=== PATIENT | male | born 1975 | race African-American/Black ===

== ENCOUNTER 2020-12-29 08:09 | Inpatient (IN) ==
[2020-12-29 08:22] VITALS: BMI 32.7
[2020-12-29 08:35] LABS: ABG BASE EXCESS 2.3 mmol/L (-2.0-2.0)
[2020-12-29 08:36] LABS: ABG ALLEN TEST POS
[2020-12-29] MEDS ORDERED: SOLU-Medrol 125 MG VIAL IVP ONE (08:37)
[2020-12-29] MEDS ORDERED: PROVENTIL NEB TX 0.083% 2.5MG/ 3ML NEB ONE (08:37)
--- NOTE | 2020-12-29 08:43 | DR.SOBA ---
HPI Time Seen Time Seen by Provider: 12/29/20 08:20 Primary Care Physician Primary Care Physician: Sandi HPI Comment HPI Comment: Patient presents with complaint of worsening sob and left shoulder pain and swelling. Seen here yesterday and dx with PNA. Notes that he has a h/o PE and takes anticoagulants, but had been "off" this med. Per patient was given heparin yesterday. Complaints Chief Complaint:: Pt c/o shortness of breath, pain all over, swelling to hands and lower lip, and difficulty walking. He states the pain is too severe to walk. Pt reports his rapid breathing is due to anxiety. COVID-19 Coronavirus risk:travel/contact w/high risk person: No Has patient experienced Coronavirus symptoms: No Source History Provided: Patient Mode of Arrival Mode of Arrival: Wheelchair Timing Onset of Chief Complaint: 12/29/20 PMH PMH Past Medical History: Yes Past Medical History: GERD and Sleep Apnea Past Medical History Comment: PE Past Surgical History: Yes Family History History of Family Medical Conditions: Yes Family Medical History: Diabetes Mellitus Social History Does patient currently use any type of tobacco product: Yes Type of Tobacco Use: Cigarettes Does any household member use tobacco: Yes Alcohol Use: None Do you use any recreational Drugs:: Yes (marijuana) Lives With: Family Lives Where: Home Travel Risk Coronavirus risk:travel/contact w/high risk person: No Has patient experienced Coronavirus symptoms: No Infectious screening In the last 2 months have you had wt loss of >10#?: NO Have you had fever, night sweats or hemotysis?: No Have you traveled outside the country in the last 6 months?: No Isolation: Standard ROS Review of Systems Constitutional: See HPI, Weakness and Fatigue Respiratoy: Short of Breath Cardiovascular: Palpitations Musculoskeletal: Joint Pain, Joint Swelling, Left and Shoulder Integumentary: Other (lip swelling) Hematologic/Lymphatic: Blood Clots All Other Systems: Reviewed and Negative PE Vital Signs Vitals: Temperature 98.3 F Pulse Rate [Left Radial] 99 Pulse Rate 96 Respiratory Rate 20 Blood Pressure [Left Arm] 134/80 Blood Pressure 134/80 O2 Sat by Pulse Oximetry 100 General Limitations: No Limitations General Appearance: Alert, Anxious and In Distress Head Head Exam: Normal Inspection ENT ENT Exam: Other (bottom lip edema) Chest Chest Inspection: Normal Inspection and Symmetric Chest Wall Rise Respiratory Respiratory Exam: Bilateral: Wheezing and Bilateral: Rhonchi Cardiovascular Cardiovascular Exam: Normal Rhythm and Tachycardia Abdominal Exam Abdominal Exam: Normal Inspection, Normal Bowel Sounds and Soft COURSE Reevaluation 1st: Unchanged Consultation Called: 10:23 Consultation Comments: Spoke with Dr. Junior who accepts patient for admission. Education/Counseling Education/Counseling: Patient Educated On: Diagnosis ROR Labs Reviewed Laboratory Results Reviewed?: Yes Result Diagrams: 12/29/20 08:31 12/29/20 08:31 Laboratory: WBC 17.3 X10^3/uL (3.6-10.0) H 12/29/20 08:31 RBC 5.41 X10^6/uL (4.7-6.0) 12/29/20 08:31 Hgb 14.5 g/dL (13.5-18.0) 12/29/20 08:31 Hct 44.1 % (42.0-54.0) 12/29/20 08:31 MCV 81.4 fL (80.0-100.0) 12/29/20 08:31 MCH 26.8 pg (27.0-34.0) L 12/29/20 08:31 MCHC 33.0 g/dL (33.0-35.0) 12/29/20 08:31 RDW 18.0 % (11.6-16.5) H 12/29/20 08:31 Plt Count 401 X10^3/uL (150.0-450.0) 12/29/20 08:31 MPV 7.7 fL (7.4-11.0) 12/29/20 08:31 Neut % (Auto) 67.4 % (42.0-75.0) 12/29/20 08:31 Lymph % (Auto) 8.4 % (21.0-51.0) L 12/29/20 08:31 [place] % (Auto) 4.2 % (0.0-13.0) 12/29/20 08:31 Eos % (Auto) 19.8 % (0.9-2.9) H 12/29/20 08:31 Baso % (Auto) 0.2 % (0.2-1.0) 12/29/20 08:31 Neut # (Auto) 11.7 x10^3/uL (2.2-4.8) H 12/29/20 08:31 Lymph # (Auto) 1.5 X10^3/uL (1.3-2.9) 12/29/20 08:31 [place] # (Auto) 0.7 x10^3/uL (0.3-0.8) 12/29/20 08:31 Eos # (Auto) 3.4 x10^3/uL (0.0-0.2) H 12/29/20 08:31 Baso # (Auto) 0.0 X10^3/uL (0.0-0.1) 12/29/20 08:31 Absolute Nucleated RBC 0.1 /100WBC 12/29/20 08:31 D-Dimer 3.79 ug/ml (0.0-0.57) H* 12/29/20 08:31 Sample Site Rr 12/29/20 08:30 ABG pH 7.500 (7.35-7.45) H 12/29/20 08:30 ABG pCO2 32.0 mmHg (35.0-45.0) L 12/29/20 08:30 ABG pO2 72.0 mmHg (80.0-100.0) L 12/29/20 08:30 ABG HCO3 25.0 mmol/L (22-26) 12/29/20 08:30 ABG O2 Saturation 96.0 % (90-100) 12/29/20 08:30 ABG Base Excess 2.3 mmol/L (-2.0-2.0) H 12/29/20 08:30 Bryan Test Pos 12/29/20 08:30 A-a Gradient 88.0 mmHg 12/29/20 08:30 FiO2 28.0 12/29/20 08:30 Blood Gas Comments Pt bella well cdn 12/29/20 08:30 Sodium 137 mmol/L (136-145) 12/29/20 08:31 Corrected Sodium 137 mmol/L (136-145) 12/29/20 08:31 Potassium 3.5 mmol/L (3.5-5.1) 12/29/20 08:31 Chloride 100 mmol/L (98-107) 12/29/20 08:31 Carbon Dioxide 25.7 mmol/L (21-32) 12/29/20 08:31 BUN 8 mg/dL (7-18) 12/29/20 08:31 Creatinine 1.38 mg/dL (0.70-1.30) H 12/29/20 08:31 Est GFR (MDRD) Af Amer > 60 (>60) 12/29/20 08:31 Est GFR (MDRD) Non-Af 59 (>60) 12/29/20 08:31 Glucose 113 mg/dL (65-99) H 12/29/20 08:31 Calcium 8.9 mg/dL (8.5-10.1) 12/29/20 08:31 Corrected Calcium 9.5 mg/dL (8.5-10.1) 12/29/20 08:31 Magnesium 2.0 mg/dL (1.7-2.9) 12/29/20 08:31 Total Bilirubin 0.70 mg/dL (0.2-1.0) 12/29/20 08:31 AST 21 Units/L (15-37) 12/29/20 08:31 ALT 19 Units/L (12-78) 12/29/20 08:31 Alkaline Phosphatase 127 Units/L (46-116) H 12/29/20 08:31 Creatine Kinase 579 Units/L (39-308) H 12/29/20 08:31 CK-MB (CK-2) 4.7 ng/mL (0-4.0) H* 12/29/20 08:31 CK/CKMB % Calc 0.8 % (<4) 12/29/20 08:31 Troponin I < 0.02 ng/mL (0-1.5) 12/29/20 08:31 Total Protein 8.2 g/dL (6.4-8.2) 12/29/20 08:31 Albumin 3.3 g/dL (3.4-5.0) L 12/29/20 08:31 Globulin 4.9 g/dL (2.5-4.5) H 12/29/20 08:31 Albumin/Globulin Ratio 0.7 Ratio (1.1-2.1) L 12/29/20 08:31 XRAY X-ray Results: HISTORY SOB, PAIN, PT UNABLE TO HOLD LEFT ARM UP FOR LATERAL DUE TO SHOULDER PAIN STUDY CHEST, PA/LAT ADULT COMPARISON 12/28/2020 FINDINGS The cardiomediastinal silhouette is stable. Hypoventilatory exam with worsening perihilar and bibasilar airspace opacities. The bony thorax appears intact. IMPRESSION Worsening bilateral airspace opacities. Recommend follow-up to resolution. Electronically signed by: ERIBERTO MIR (December 29, 2020 09:18:20) Opioid Opioid Risk Tool Age (Damon box if 16-45): Yes History of Preadolescent Sexual Abuse: No Total: 1 Total Score Risk Category: Low Risk Copyright: Jeremiah KOCH predicting aberrant behaviors Diagnosis Discharge Problem: CAP (community acquired pneumonia) Qualifiers: Laterality: unspecified laterality Qualified Code(s): J18.9 - Pneumonia, unspecified organism
[2020-12-29] MEDS ORDERED: SOLU-Medrol 125 MG VIAL ONE (08:46)
[2020-12-29 08:47] LABS: BASOPHILS % (AUTO) 0.2 % (0.2-1.0); EOSINOPHILS # (AUTO) 3.4 x10^3/uL (0.0-0.2); EOSINOPHILS % (AUTO) 19.8 % (0.9-2.9); HEMATOCRIT 44.1 % (42.0-54.0); HEMOGLOBIN 14.5 g/dL (13.5-18.0); LYMPHOCYTES # (AUTO) 1.5 X10^3/uL (1.3-2.9); LYMPHOCYTES % (AUTO) 8.4 % (21.0-51.0); MEAN CORPUSCULAR HEMOGLOBIN 26.8 pg (27.0-34.0); MEAN CORPUSCULAR VOLUME 81.4 fL (80.0-100.0); MEAN PLATELET VOLUME 7.7 fL (7.4-11.0); MONOCYTES # (AUTO) 0.7 x10^3/uL (0.3-0.8); MONOCYTES % (AUTO) 4.2 % (0.0-13.0); NEUTROPHILS # (AUTO) 11.7 x10^3/uL (2.2-4.8); NEUTROPHILS % (AUTO) 67.4 % (42.0-75.0); PLATELET COUNT 401 X10^3/uL (150.0-450.0); RED BLOOD COUNT 5.41 X10^6/uL (4.7-6.0); WHITE BLOOD COUNT 17.3 X10^3/uL (3.6-10.0)
[2020-12-29] MEDS ORDERED: PROVENTIL NEB TX 0.083% 2.5MG/ 3ML ONE (08:59)
[2020-12-29 09:00] LABS: BLOOD UREA NITROGEN 8 mg/dL (7-18); CALCIUM 8.9 mg/dL (8.5-10.1); CARBON DIOXIDE 25.7 mmol/L (21-32); CHLORIDE 100 mmol/L (98-107); COR NA(FOR HYPERGLY) 137 mmol/L (136-145); CREATININE 1.38 mg/dL (0.70-1.30); SODIUM 137 mmol/L (136-145); TROPONIN I < 0.02 ng/mL (0-1.5); eGFR NON BLACK RACES 59 (>60)
[2020-12-29] MEDS ORDERED: DUONEB 0.5 MG/3 MG (3 mL) NEB ONE ×2 (09:03→09:35)
--- NOTE | 2020-12-29 09:20 | RAD ---
HISTORYSOB, PAIN, PT UNABLE TO HOLD LEFT ARM UP FOR LATERAL DUE TO SHOULDER PAINSTUDYCHTEDDY, PA/LAT [id number]/13/2021FINDINGSThe cardiomediastinal silhouette is stable. Hypoventilatory exam with worsening perihilar and bibasilar airspace opacities. The bony thorax appears intact.IMPRESSIONWorsening bilateral airspace opacities. Recommend follow-up to resolution.Electronically signed by: ERIBERTO MIR (December 29, 2020 09:18:20)
[2020-12-29 09:24] LABS: ALANINE AMINOTRANSFERASE 19 Units/L (12-78); ALBUMIN 3.3 g/dL (3.4-5.0); ALKALINE PHOSPHATASE 127 Units/L (46-116); ASPARTATE AMINO TRANSFERASE 21 Units/L (15-37); CKMB % 0.8 % (<4); COR CA(FOR HYPOALB) 9.5 mg/dL (8.5-10.1); CREATINE KINASE 579 Units/L (39-308); TOTAL PROTEIN 8.2 g/dL (6.4-8.2)
[2020-12-29 09:27] LABS: CREATINE KINASE MB 4.7 ng/mL (0-4.0)
[2020-12-29] MEDS ORDERED: ZOSYN VIAL 3.375 GRAMS 3.375 G in NS 100 ML IV + SPIKE MINIBAG* 100 ML IV ONE (09:27)
[2020-12-29] MEDS ORDERED: MORPHINE SULFATE INJ 2 MG INJ IVP ONE (09:28)
[2020-12-29] MEDS ORDERED: VANCOMYCIN IV *PREMIX 1 G/200 ML BAG 1 G/200 ML PIGGYBACK IV ONE ×2 (09:28→10:54)
[2020-12-29] MEDS ORDERED: MORPHINE SULFATE INJ 2 MG INJ ONE (09:30)
[2020-12-29] MEDS ORDERED: ZOSYN VIAL 3.375 GRAMS IV ONE (09:30)
[2020-12-29] MEDS ORDERED: NS 100 ML IV + SPIKE MINIBAG* 100 ML IV ONE (09:31)
[2020-12-29] MEDS ORDERED: ELIQUIS ONE (09:40)
[2020-12-29] MEDS ORDERED: NS 1000 ML 0 ML ONE (10:54)
[2020-12-29] MEDS ORDERED: NS 1/2 1000 ML IV 1,000 ML IV ONE (10:56)
[2020-12-29] MEDS: NS 1/2 1000 ML IV 1,000 ML IV SCH (11:02)
[2020-12-29] MEDS ORDERED: XOPENEX 1.25 MG/3 ML NEBULE NEB ONE ×2 (12:30→16:12)
[2020-12-29] MEDS: XOPENEX 1.25 MG/3 ML NEBULE NEB SCH ×3 (12:45→18:05)
[2020-12-29] MEDS: ROBITUSSIN DM PO SCH ×4 (14:20→21:31)
[2020-12-29] MEDS: LEVAQUIN PREMIX IV 750 MG 750 MG/150 ML BAG IV SCH (14:56)
[2020-12-29] MEDS: ZOSYN VIAL 4.5 GRAMS 4.5 G in NS 100 ML IV + SPIKE MINIBAG* 100 ML IV SCH ×2 (14:57→21:31)
[2020-12-29] MEDS: TORADOL 30 MG VIAL IVP PRN ×2 (16:04→21:31)
[2020-12-29] MEDS: PROTONIX TAB 40 MG PO SCH (17:41)
[2020-12-29] MEDS ORDERED: ELIQUIS PO SCH (21:00)
[2020-12-29] MEDS: PULMICORT NEB TX 0.5 MG NEB SCH (21:29)
[2020-12-29] MEDS: TUSSIONEX PENNKINETIC SUSP PO PRN (21:49)
[2020-12-30] MEDS: XOPENEX 1.25 MG/3 ML NEBULE NEB SCH ×4 (00:27→17:52)
[2020-12-30] MEDS: NS 1/2 1000 ML IV 1,000 ML IV SCH ×3 (05:05→18:15)
[2020-12-30] MEDS: TORADOL 30 MG VIAL IVP PRN ×2 (05:12→20:44)
[2020-12-30] MEDS: ZOSYN VIAL 4.5 GRAMS 4.5 G in NS 100 ML IV + SPIKE MINIBAG* 100 ML IV SCH ×3 (05:14→21:27)
--- NOTE | 2020-12-30 06:25 | RAD ---
HISTORYPneumoniaSTUDYChest PA and lateral [id number]/14/2021FINDINGSHeart size normal. There is interval improvement in pulmonary aeration with slight decrease in bilateral airspace disease. Infiltrates remain, however. No new areas of involvement identified. There is no evidence for pneumothorax or large pleural effusion.IMPRESSIONSlight interval improvement in appearance of the chest.Electronically signed by: SVETLANA DUARTE (December 30, 2020 06:23:33)
[2020-12-30 06:44] LABS: BASOPHILS % (AUTO) 0.1 % (0.2-1.0); EOSINOPHILS # (AUTO) 0.1 x10^3/uL (0.0-0.2); EOSINOPHILS % (AUTO) 0.6 % (0.9-2.9); HEMATOCRIT 36.7 % (42.0-54.0); HEMOGLOBIN 12.2 g/dL (13.5-18.0); LYMPHOCYTES # (AUTO) 1.6 X10^3/uL (1.3-2.9); LYMPHOCYTES % (AUTO) 8.8 % (21.0-51.0); MEAN CORPUSCULAR HEMOGLOBIN 26.9 pg (27.0-34.0); MEAN CORPUSCULAR HGB CONC 33.1 g/dL (33.0-35.0); MEAN CORPUSCULAR VOLUME 81.2 fL (80.0-100.0); MEAN PLATELET VOLUME 8.2 fL (7.4-11.0); MONOCYTES # (AUTO) 0.9 x10^3/uL (0.3-0.8); MONOCYTES % (AUTO) 5.1 % (0.0-13.0); NEUTROPHILS # (AUTO) 15.2 x10^3/uL (2.2-4.8); NEUTROPHILS % (AUTO) 85.4 % (42.0-75.0); PLATELET COUNT 364 X10^3/uL (150.0-450.0); RED BLOOD COUNT 4.52 X10^6/uL (4.7-6.0); RED CELL DISTRIBUTION WIDTH 17.8 % (11.6-16.5); WHITE BLOOD COUNT 17.8 X10^3/uL (3.6-10.0)
[2020-12-30 06:52] LABS: ALANINE AMINOTRANSFERASE 18 Units/L (12-78); ALBUMIN 2.7 g/dL (3.4-5.0); ALKALINE PHOSPHATASE 107 Units/L (46-116); ASPARTATE AMINO TRANSFERASE 16 Units/L (15-37); BLOOD UREA NITROGEN 16 mg/dL (7-18); CALCIUM 8.5 mg/dL (8.5-10.1); CARBON DIOXIDE 26.9 mmol/L (21-32); CHLORIDE 103 mmol/L (98-107); COR CA(FOR HYPOALB) 9.5 mg/dL (8.5-10.1); COR NA(FOR HYPERGLY) 140 mmol/L (136-145); CREATININE 1.28 mg/dL (0.70-1.30); SODIUM 139 mmol/L (136-145); TOTAL PROTEIN 7.5 g/dL (6.4-8.2); eGFR NON BLACK RACES > 60 (>60)
[2020-12-30] MEDS ORDERED: POTASSIUM CHL 60 MEQ/NS 0.45% 500 ML IV PRN (08:23)
[2020-12-30] MEDS ORDERED: K-RIDER 10 MEQ/NS 100 ML 10 MEQ/100 ML BAG IV PRN (08:23)
[2020-12-30] MEDS ORDERED: POTASSIUM CHLORIDE LIQ 20 MEQ UDC PO PRN (08:23)
[2020-12-30] MEDS ORDERED: KLOR-CON PO PRN (08:23)
[2020-12-30] MEDS ORDERED: POTASSIUM CHL 40 MEQ/NS 0.45% 500 ML IV PRN (08:23)
[2020-12-30] MEDS ORDERED: MICRO K EXTEN CAP 10 MEQ PO PRN (08:23)
[2020-12-30] MEDS ORDERED: XARELTO PO SCH (09:00)
[2020-12-30] MEDS: PULMICORT NEB TX 0.5 MG NEB SCH ×2 (09:15→20:10)
[2020-12-30] MEDS: LEVAQUIN PREMIX IV 750 MG 750 MG/150 ML BAG IV SCH (09:16)
[2020-12-30] MEDS: ROBITUSSIN DM PO SCH ×4 (09:16→20:44)
[2020-12-30] MEDS: PROTONIX TAB 40 MG PO SCH (09:16)
[2020-12-30] MEDS: K-DUR TAB 20 MEQ PO PRN (14:08)
[2020-12-30] MEDS: TUSSIONEX PENNKINETIC SUSP PO PRN (17:34)
[2020-12-30] MEDS ORDERED: NS 1/2 1000 ML IV 1,000 ML IV ONE (18:11)
[2020-12-30] MEDS ORDERED: LEXAPRO ONE (19:10)
[2020-12-30] MEDS: LEXAPRO PO SCH (20:43)
[2020-12-30] MEDS ORDERED: XARELTO PO NR (21:00)
[2020-12-31] MEDS: XOPENEX 1.25 MG/3 ML NEBULE NEB SCH ×4 (00:13→18:18)
[2020-12-31] MEDS: TORADOL 30 MG VIAL IVP PRN ×2 (01:49→20:28)
[2020-12-31] MEDS: ZOSYN VIAL 4.5 GRAMS 4.5 G in NS 100 ML IV + SPIKE MINIBAG* 100 ML IV SCH ×3 (05:10→21:00)
[2020-12-31] MEDS: TUSSIONEX PENNKINETIC SUSP PO PRN ×2 (05:10→20:28)
[2020-12-31] MEDS: NS 1/2 1000 ML IV 1,000 ML IV SCH ×2 (05:47→20:27)
[2020-12-31 06:48] LABS: BASOPHILS % (AUTO) 0.2 % (0.2-1.0); EOSINOPHILS # (AUTO) 3.7 x10^3/uL (0.0-0.2); EOSINOPHILS % (AUTO) 28.4 % (0.9-2.9); HEMATOCRIT 37.1 % (42.0-54.0); LYMPHOCYTES # (AUTO) 2.3 X10^3/uL (1.3-2.9); MEAN CORPUSCULAR HEMOGLOBIN 26.6 pg (27.0-34.0); MEAN CORPUSCULAR HGB CONC 32.5 g/dL (33.0-35.0); MEAN PLATELET VOLUME 8.1 fL (7.4-11.0); MONOCYTES # (AUTO) 0.5 x10^3/uL (0.3-0.8); MONOCYTES % (AUTO) 3.5 % (0.0-13.0); NEUTROPHILS # (AUTO) 6.5 x10^3/uL (2.2-4.8); NEUTROPHILS % (AUTO) 49.9 % (42.0-75.0); PLATELET COUNT 361 X10^3/uL (150.0-450.0); RED BLOOD COUNT 4.52 X10^6/uL (4.7-6.0); RED CELL DISTRIBUTION WIDTH 17.6 % (11.6-16.5)
[2020-12-31 06:49] LABS: ALANINE AMINOTRANSFERASE 20 Units/L (12-78); ALBUMIN 2.5 g/dL (3.4-5.0); ALKALINE PHOSPHATASE 92 Units/L (46-116); ASPARTATE AMINO TRANSFERASE 19 Units/L (15-37); BLOOD UREA NITROGEN 13 mg/dL (7-18); CALCIUM 8.4 mg/dL (8.5-10.1); CARBON DIOXIDE 28.1 mmol/L (21-32); CHLORIDE 100 mmol/L (98-107); COR CA(FOR HYPOALB) 9.6 mg/dL (8.5-10.1); COR NA(FOR HYPERGLY) 136 mmol/L (136-145); CREATININE 1.12 mg/dL (0.70-1.30); SODIUM 136 mmol/L (136-145); TOTAL PROTEIN 6.9 g/dL (6.4-8.2); eGFR NON BLACK RACES > 60 (>60)
[2020-12-31 07:07] LABS: ANISOCYTOSIS SLIGHT; HYPOCHROMASIA SLIGHT; PLATELET MORPHOLOGY COMMENT NORMAL (NORMAL)
[2020-12-31] MEDS ORDERED: LEXAPRO ONE (07:32)
[2020-12-31] MEDS: PULMICORT NEB TX 0.5 MG NEB SCH ×2 (08:37→20:23)
[2020-12-31] MEDS: ROBITUSSIN DM PO SCH ×4 (08:58→20:28)
[2020-12-31] MEDS: PROTONIX TAB 40 MG PO SCH (08:59)
[2020-12-31] MEDS: LEXAPRO PO SCH (08:59)
[2020-12-31] MEDS: LEVAQUIN PREMIX IV 750 MG 750 MG/150 ML BAG IV SCH (09:00)
[2020-12-31] MEDS: XARELTO PO SCH (10:00)
--- NOTE | 2020-12-31 12:33 | VAS ---
HISTORYRT LOWER ARM PAINSTUDYUPPER EXT VENOUS, UNILATERALCOMPARISONAvailableTECHNIQUEMultiple guzmán scale and color flow Doppler images of the deep v enous system were obtained of the right upper extremity.FINDINGSThe deep venous system of the right u pper extremity was evaluated from the level of the right jugular through forearm vein. Normal color f low and augmentation can be observed. In addition, normal compression is seen throughout the deep ve nous system.IMPRESSIONNegative for DVT in the right upper extremity.Electronically signed by: Rene Amanda (December 31, 2020 12:30:09)
[2020-12-31] MEDS: K-DUR TAB 20 MEQ PO PRN (17:38)
[2020-12-31] MEDS ORDERED: NS 1/2 1000 ML IV 1,000 ML IV ONE (19:15)
[2021-01-01] MEDS: XOPENEX 1.25 MG/3 ML NEBULE NEB SCH ×4 (00:39→17:30)
[2021-01-01] MEDS: ZOSYN VIAL 4.5 GRAMS 4.5 G in NS 100 ML IV + SPIKE MINIBAG* 100 ML IV SCH ×3 (05:09→22:00)
[2021-01-01] MEDS: TORADOL 30 MG VIAL IVP PRN (05:10)
[2021-01-01 06:09] LABS: BASOPHILS % (AUTO) 0.2 % (0.2-1.0); EOSINOPHILS # (AUTO) 4.9 x10^3/uL (0.0-0.2); HEMATOCRIT 35.5 % (42.0-54.0); HEMOGLOBIN 11.5 g/dL (13.5-18.0); LYMPHOCYTES # (AUTO) 2.2 X10^3/uL (1.3-2.9); LYMPHOCYTES % (AUTO) 17.8 % (21.0-51.0); MEAN CORPUSCULAR HEMOGLOBIN 26.6 pg (27.0-34.0); MEAN CORPUSCULAR HGB CONC 32.4 g/dL (33.0-35.0); MEAN CORPUSCULAR VOLUME 81.9 fL (80.0-100.0); MONOCYTES # (AUTO) 0.4 x10^3/uL (0.3-0.8); MONOCYTES % (AUTO) 3.3 % (0.0-13.0); NEUTROPHILS % (AUTO) 39.7 % (42.0-75.0); PLATELET COUNT 364 X10^3/uL (150.0-450.0); RED BLOOD COUNT 4.33 X10^6/uL (4.7-6.0); RED CELL DISTRIBUTION WIDTH 17.3 % (11.6-16.5); WHITE BLOOD COUNT 12.6 X10^3/uL (3.6-10.0)
[2021-01-01 06:22] LABS: ALANINE AMINOTRANSFERASE 39 Units/L (12-78); ALBUMIN 2.2 g/dL (3.4-5.0); ALKALINE PHOSPHATASE 111 Units/L (46-116); ASPARTATE AMINO TRANSFERASE 39 Units/L (15-37); BLOOD UREA NITROGEN 14 mg/dL (7-18); CALCIUM 8.4 mg/dL (8.5-10.1); CARBON DIOXIDE 30.3 mmol/L (21-32); CHLORIDE 105 mmol/L (98-107); COR CA(FOR HYPOALB) 9.8 mg/dL (8.5-10.1); COR NA(FOR HYPERGLY) 141 mmol/L (136-145); CREATININE 1.23 mg/dL (0.70-1.30); SODIUM 141 mmol/L (136-145); TOTAL PROTEIN 6.6 g/dL (6.4-8.2); eGFR NON BLACK RACES > 60 (>60)
[2021-01-01 06:41] LABS: BAND NEUTROPHILS % 1 % (0-10); PLATELET MORPHOLOGY COMMENT NORMAL (NORMAL)
[2021-01-01 06:42] LABS: ANISOCYTOSIS SLIGHT; HYPOCHROMASIA SLIGHT
[2021-01-01] MEDS ORDERED: LEXAPRO ONE (09:30)
[2021-01-01] MEDS: K-DUR TAB 20 MEQ PO PRN (09:48)
[2021-01-01] MEDS: ROBITUSSIN DM PO SCH ×5 (09:48→21:46)
[2021-01-01] MEDS: SOLU-Medrol 125 MG VIAL IVP SCH ×2 (09:48→15:00)
[2021-01-01] MEDS: XARELTO PO SCH (09:49)
[2021-01-01] MEDS: PROTONIX TAB 40 MG PO SCH (09:50)
[2021-01-01] MEDS: LEVAQUIN PREMIX IV 750 MG 750 MG/150 ML BAG IV SCH (09:51)
[2021-01-01] MEDS: LEXAPRO PO SCH (10:00)
--- NOTE | 2021-01-01 10:42 | RAD ---
HISTORYSOB, PNEUMONIASTUDYCHEST, PA/LAT ADULTCOMPARISONTwo-view chest December 30, 2020.FINDINGSThe trachea is midline. The cardiac silhouette is unremarkable . The bilateral pulmonary infiltrates remain with mild worsening on bilaterally. No effusions are present. The bony thorax is unremarkable.IMPRESSIONWorsening infiltrates left midlung field and right lower lung field when compared to the last film December 30, 2020.Electronically signed by: MISTY WEI (January 01, 2021 10:39:55)
[2021-01-01] MEDS: PULMICORT NEB TX 0.5 MG NEB SCH ×3 (12:05→21:12)
[2021-01-01] MEDS: NS 1/2 1000 ML IV 1,000 ML IV SCH (15:29)
[2021-01-01] MEDS ORDERED: NS 1/2 1000 ML IV 1,000 ML IV ONE (18:22)
[2021-01-01] MEDS: SOLU-Medrol 40 MG VIAL IVP SCH (21:47)
[2021-01-02] MEDS: XOPENEX 1.25 MG/3 ML NEBULE NEB SCH ×4 (00:30→16:44)
[2021-01-02] MEDS: SOLU-Medrol 40 MG VIAL IVP SCH ×3 (05:42→22:07)
[2021-01-02] MEDS: ZOSYN VIAL 4.5 GRAMS 4.5 G in NS 100 ML IV + SPIKE MINIBAG* 100 ML IV SCH ×3 (05:42→22:06)
[2021-01-02 05:56] LABS: BASOPHILS % (AUTO) 0.1 % (0.2-1.0); EOSINOPHILS # (AUTO) 0.2 x10^3/uL (0.0-0.2); EOSINOPHILS % (AUTO) 1.5 % (0.9-2.9); HEMATOCRIT 33.1 % (42.0-54.0); HEMOGLOBIN 10.7 g/dL (13.5-18.0); LYMPHOCYTES % (AUTO) 14.4 % (21.0-51.0); MEAN CORPUSCULAR HEMOGLOBIN 26.6 pg (27.0-34.0); MEAN CORPUSCULAR HGB CONC 32.4 g/dL (33.0-35.0); MEAN PLATELET VOLUME 7.6 fL (7.4-11.0); MONOCYTES # (AUTO) 0.6 x10^3/uL (0.3-0.8); MONOCYTES % (AUTO) 4.2 % (0.0-13.0); NEUTROPHILS # (AUTO) 11.1 x10^3/uL (2.2-4.8); NEUTROPHILS % (AUTO) 79.8 % (42.0-75.0); PLATELET COUNT 369 X10^3/uL (150.0-450.0); RED BLOOD COUNT 4.04 X10^6/uL (4.7-6.0); RED CELL DISTRIBUTION WIDTH 17.7 % (11.6-16.5); WHITE BLOOD COUNT 13.9 X10^3/uL (3.6-10.0)
[2021-01-02 06:21] LABS: ALANINE AMINOTRANSFERASE 58 Units/L (12-78); ALBUMIN 2.4 g/dL (3.4-5.0); ALKALINE PHOSPHATASE 121 Units/L (46-116); ASPARTATE AMINO TRANSFERASE 33 Units/L (15-37); BLOOD UREA NITROGEN 9 mg/dL (7-18); CALCIUM 8.9 mg/dL (8.5-10.1); CHLORIDE 104 mmol/L (98-107); COR CA(FOR HYPOALB) 10.2 mg/dL (8.5-10.1); COR NA(FOR HYPERGLY) 142 mmol/L (136-145); CREATININE 1.08 mg/dL (0.70-1.30); SODIUM 140 mmol/L (136-145); TOTAL PROTEIN 7.3 g/dL (6.4-8.2); eGFR NON BLACK RACES > 60 (>60)
[2021-01-02] MEDS: NS 1/2 1000 ML IV 1,000 ML IV SCH ×4 (06:25→23:15)
[2021-01-02] MEDS ORDERED: NS 1/2 1000 ML IV 1,000 ML IV ONE ×2 (06:26→22:15)
[2021-01-02 06:32] LABS: BAND NEUTROPHILS % 1 % (0-10); PLATELET MORPHOLOGY COMMENT NORMAL (NORMAL)
[2021-01-02 06:33] LABS: ANISOCYTOSIS SLIGHT; HYPOCHROMASIA SLIGHT
[2021-01-02] MEDS: PULMICORT NEB TX 0.5 MG NEB SCH ×2 (08:05→21:53)
[2021-01-02] MEDS ORDERED: LEXAPRO ONE (08:50)
[2021-01-02] MEDS ORDERED: BETADINE SOLN ONE (08:54)
[2021-01-02] MEDS ORDERED: XYLOCAINE 1 % (PLAIN) ONE (08:54)
[2021-01-02] MEDS: LEXAPRO PO SCH (10:00)
[2021-01-02] MEDS: LEVAQUIN PREMIX IV 750 MG 750 MG/150 ML BAG IV SCH (10:00)
[2021-01-02] MEDS: PROTONIX TAB 40 MG PO SCH (10:13)
[2021-01-02] MEDS: XARELTO PO SCH (10:13)
[2021-01-02] MEDS: ROBITUSSIN DM PO SCH ×4 (10:14→21:06)
[2021-01-02] MEDS ORDERED: TOPROL XL PO ONE ×2 (16:12→17:16)
[2021-01-03] MEDS: XOPENEX 1.25 MG/3 ML NEBULE NEB SCH ×5 (00:19→16:51)
[2021-01-03 05:14] LABS: BASOPHILS # (AUTO) 0.1 X10^3/uL (0.0-0.1); BASOPHILS % (AUTO) 0.3 % (0.2-1.0); EOSINOPHILS # (AUTO) 0.1 x10^3/uL (0.0-0.2); EOSINOPHILS % (AUTO) 0.3 % (0.9-2.9); HEMATOCRIT 32.2 % (42.0-54.0); HEMOGLOBIN 10.7 g/dL (13.5-18.0); LYMPHOCYTES # (AUTO) 2.6 X10^3/uL (1.3-2.9); LYMPHOCYTES % (AUTO) 12.7 % (21.0-51.0); MEAN CORPUSCULAR HEMOGLOBIN 26.9 pg (27.0-34.0); MEAN CORPUSCULAR HGB CONC 33.2 g/dL (33.0-35.0); MEAN CORPUSCULAR VOLUME 81.1 fL (80.0-100.0); MEAN PLATELET VOLUME 7.8 fL (7.4-11.0); MONOCYTES # (AUTO) 1.2 x10^3/uL (0.3-0.8); MONOCYTES % (AUTO) 5.7 % (0.0-13.0); NEUTROPHILS # (AUTO) 16.6 x10^3/uL (2.2-4.8); PLATELET COUNT 420 X10^3/uL (150.0-450.0); RED BLOOD COUNT 3.97 X10^6/uL (4.7-6.0); RED CELL DISTRIBUTION WIDTH 17.7 % (11.6-16.5); WHITE BLOOD COUNT 20.5 X10^3/uL (3.6-10.0)
[2021-01-03 05:26] LABS: ALANINE AMINOTRANSFERASE 80 Units/L (12-78); ALBUMIN 2.5 g/dL (3.4-5.0); ALKALINE PHOSPHATASE 124 Units/L (46-116); ASPARTATE AMINO TRANSFERASE 48 Units/L (15-37); BLOOD UREA NITROGEN 16 mg/dL (7-18); CALCIUM 8.5 mg/dL (8.5-10.1); CARBON DIOXIDE 30.8 mmol/L (21-32); CHLORIDE 104 mmol/L (98-107); COR CA(FOR HYPOALB) 9.7 mg/dL (8.5-10.1); COR NA(FOR HYPERGLY) 145 mmol/L (136-145); CREATININE 1.08 mg/dL (0.70-1.30); SODIUM 144 mmol/L (136-145); TOTAL PROTEIN 7.2 g/dL (6.4-8.2); eGFR NON BLACK RACES > 60 (>60)
[2021-01-03 05:43] LABS: METAMYELOCYTES % 6; PLATELET MORPHOLOGY COMMENT NORMAL (NORMAL)
[2021-01-03] MEDS: ZOSYN VIAL 4.5 GRAMS 4.5 G in NS 100 ML IV + SPIKE MINIBAG* 100 ML IV SCH ×3 (05:44→21:49)
[2021-01-03] MEDS: SOLU-Medrol 40 MG VIAL IVP SCH ×4 (05:44→22:24)
[2021-01-03] MEDS: NS 1/2 1000 ML IV 1,000 ML IV SCH ×2 (05:45→16:55)
[2021-01-03] MEDS ORDERED: LEXAPRO ONE (07:48)
[2021-01-03] MEDS: PULMICORT NEB TX 0.5 MG NEB SCH ×2 (08:30→20:10)
[2021-01-03] MEDS ORDERED: TOPROL XL PO ONE (08:39)
[2021-01-03] MEDS: LEVAQUIN PREMIX IV 750 MG 750 MG/150 ML BAG IV SCH (08:44)
[2021-01-03] MEDS: LEXAPRO PO SCH (08:45)
[2021-01-03] MEDS: ROBITUSSIN DM PO SCH ×4 (08:45→20:38)
[2021-01-03] MEDS: PROTONIX TAB 40 MG PO SCH (08:45)
[2021-01-03] MEDS: TOPROL XL PO SCH (08:46)
[2021-01-03] MEDS ORDERED: NS 1/2 1000 ML IV 1,000 ML IV ONE (16:38)
[2021-01-04] MEDS: XOPENEX 1.25 MG/3 ML NEBULE NEB SCH ×4 (00:11→17:17)
[2021-01-04] MEDS: TUSSIONEX PENNKINETIC SUSP PO PRN ×2 (00:27→11:30)
[2021-01-04] MEDS: TORADOL 30 MG VIAL IVP PRN ×2 (00:28→08:37)
[2021-01-04] MEDS ORDERED: NS 1/2 1000 ML IV 1,000 ML IV ONE ×2 (04:09→22:23)
[2021-01-04] MEDS: NS 1/2 1000 ML IV 1,000 ML IV SCH ×2 (04:15→06:33)
[2021-01-04 04:48] LABS: BASOPHILS # (AUTO) 0.1 X10^3/uL (0.0-0.1); BASOPHILS % (AUTO) 0.4 % (0.2-1.0); EOSINOPHILS # (AUTO) 0.1 x10^3/uL (0.0-0.2); EOSINOPHILS % (AUTO) 0.2 % (0.9-2.9); HEMATOCRIT 31.6 % (42.0-54.0); HEMOGLOBIN 10.3 g/dL (13.5-18.0); LYMPHOCYTES # (AUTO) 3.3 X10^3/uL (1.3-2.9); LYMPHOCYTES % (AUTO) 15.5 % (21.0-51.0); MEAN CORPUSCULAR HEMOGLOBIN 26.3 pg (27.0-34.0); MEAN CORPUSCULAR HGB CONC 32.7 g/dL (33.0-35.0); MEAN CORPUSCULAR VOLUME 80.4 fL (80.0-100.0); MEAN PLATELET VOLUME 7.7 fL (7.4-11.0); MONOCYTES # (AUTO) 1.6 x10^3/uL (0.3-0.8); MONOCYTES % (AUTO) 7.5 % (0.0-13.0); NEUTROPHILS # (AUTO) 16.3 x10^3/uL (2.2-4.8); NEUTROPHILS % (AUTO) 76.4 % (42.0-75.0); PLATELET COUNT 385 X10^3/uL (150.0-450.0); RED BLOOD COUNT 3.93 X10^6/uL (4.7-6.0); RED CELL DISTRIBUTION WIDTH 17.5 % (11.6-16.5); WHITE BLOOD COUNT 21.4 X10^3/uL (3.6-10.0)
[2021-01-04 05:03] LABS: ALANINE AMINOTRANSFERASE 68 Units/L (12-78); ALBUMIN 2.4 g/dL (3.4-5.0); ALKALINE PHOSPHATASE 102 Units/L (46-116); ASPARTATE AMINO TRANSFERASE 25 Units/L (15-37); BLOOD UREA NITROGEN 21 mg/dL (7-18); CALCIUM 8.4 mg/dL (8.5-10.1); CARBON DIOXIDE 29.5 mmol/L (21-32); CHLORIDE 104 mmol/L (98-107); COR CA(FOR HYPOALB) 9.7 mg/dL (8.5-10.1); COR NA(FOR HYPERGLY) 141 mmol/L (136-145); CREATININE 1.11 mg/dL (0.70-1.30); METAMYELOCYTES % 10; MYELOCYTES % 1; SODIUM 140 mmol/L (136-145); TOTAL PROTEIN 6.6 g/dL (6.4-8.2); eGFR NON BLACK RACES > 60 (>60)
[2021-01-04 05:04] LABS: PLATELET MORPHOLOGY COMMENT NORMAL (NORMAL)
[2021-01-04] MEDS: ZOSYN VIAL 4.5 GRAMS 4.5 G in NS 100 ML IV + SPIKE MINIBAG* 100 ML IV SCH (05:26)
[2021-01-04] MEDS: SOLU-Medrol 40 MG VIAL IVP SCH (05:27)
--- NOTE | 2021-01-04 06:17 | RAD ---
HISTORYSARCOIDOSISSTUDYCHEST, PA/LAT [id number]/17/2021.TECHNIQUEPA and 2 lateral views of the chest.FINDINGSCardiac and mediastinal contours are within normal limits. Continued worsening of multifocal bilateral airspace opacities. Blunted left costophrenic sulcus suspicious for small effusion. No discernible pneumothorax.IMPRESSIONContinued worsening of multifocal bilateral airspace opacities which appear more dense than prior. Suspect small left pleural effusion.Electronically signed by: Gerard Dunaway (January 04, 2021 06:14:50)
[2021-01-04] MEDS ORDERED: TOPROL XL PO ONE (08:02)
[2021-01-04] MEDS ORDERED: LEXAPRO ONE (08:02)
[2021-01-04] MEDS: TOPROL XL PO SCH (08:40)
[2021-01-04] MEDS: ROBITUSSIN DM PO SCH ×3 (08:40→16:20)
[2021-01-04] MEDS: LEXAPRO PO SCH (08:41)
[2021-01-04] MEDS: XARELTO PO SCH ×2 (08:41→08:46)
[2021-01-04] MEDS: PROTONIX TAB 40 MG PO SCH (08:41)
[2021-01-04] MEDS: LEVAQUIN PREMIX IV 750 MG 750 MG/150 ML BAG IV SCH (08:43)
[2021-01-04] MEDS: NYSTATIN SUSP PO SCH ×3 (09:31→16:20)
[2021-01-04] MEDS: PREDNISONE TAB 20 MG PO SCH (09:31)
[2021-01-04] MEDS: PULMICORT NEB TX 0.5 MG NEB SCH ×2 (09:37→21:00)
[2021-01-04] MEDS ORDERED: DIFLUCAN PO SCH (10:00)
[2021-01-04] MEDS ORDERED: XANAX PO ONE (16:05)
[2021-01-04] MEDS ORDERED: LEVSIN/MAALOX/LIDOC VISC PO ONE (16:05)
[2021-01-04] MEDS ORDERED: ATIVAN TAB 0.5 MG PO ONE (17:56)
[2021-01-04 19:27] LABS: BASOPHILS # (AUTO) 0.2 X10^3/uL (0.0-0.1); BASOPHILS % (AUTO) 0.5 % (0.2-1.0); EOSINOPHILS # (AUTO) 0.2 x10^3/uL (0.0-0.2); EOSINOPHILS % (AUTO) 0.6 % (0.9-2.9); HEMOGLOBIN 10.1 g/dL (13.5-18.0); LYMPHOCYTES # (AUTO) 5.4 X10^3/uL (1.3-2.9); MEAN CORPUSCULAR HEMOGLOBIN 26.5 pg (27.0-34.0); MEAN CORPUSCULAR HGB CONC 32.7 g/dL (33.0-35.0); MEAN CORPUSCULAR VOLUME 81.1 fL (80.0-100.0); MEAN PLATELET VOLUME 7.7 fL (7.4-11.0); MONOCYTES # (AUTO) 2.9 x10^3/uL (0.3-0.8); MONOCYTES % (AUTO) 9.8 % (0.0-13.0); NEUTROPHILS # (AUTO) 21.3 x10^3/uL (2.2-4.8); NEUTROPHILS % (AUTO) 71.1 % (42.0-75.0); PLATELET COUNT 449 X10^3/uL (150.0-450.0); RED BLOOD COUNT 3.82 X10^6/uL (4.7-6.0); RED CELL DISTRIBUTION WIDTH 17.7 % (11.6-16.5); WHITE BLOOD COUNT 29.9 X10^3/uL (3.6-10.0)
[2021-01-04 19:41] LABS: ANISOCYTOSIS 1+; BAND NEUTROPHILS % 5 % (0-10); HYPOCHROMASIA SLIGHT; METAMYELOCYTES % 4; PLATELET MORPHOLOGY COMMENT NORMAL (NORMAL); POIKILOCYTOSIS SLIGHT
[2021-01-04] MEDS ORDERED: ATIVAN INJ 2 MG VIAL IVP ONE (20:45)
[2021-01-04] MEDS ORDERED: ATIVAN INJ 2 MG VIAL ONE (20:55)
[2021-01-04] MEDS ORDERED: NS 1000 ML 1,000 ML ONE ×2 (22:23→23:32)
--- NOTE | 2021-01-04 23:01 | RAD ---
EXAM: CHEST X-RAYHISTORY: Verification of tube position status post tube placement.TECHNIQUE: AP chest x-ray.COMPARISON: None available.FINDINGS:New endotracheal tube is noted in situ with the distal tip approximately 6.9 cm above the selam (adequate position). The heart size and mediastinum are within normal limits.There is significant interval progression of severe bilateral lung parenchymal infiltrates. Clinical correlation is advised. There is no discernible pleural effusion, or pneumothorax seen. The visualized bony structures are within normal limits.IMPRESSION:1. New endotracheal tube is noted in situ with the distal tip approximately 6.9 cm above the selam (adequate position).2. Significant interval progression of severe bilateral lung parenchymal infiltrates. Clinical correlation is advised and appropriate follow-up evaluation is recommended.Electronically signed by: Lance Frias (January 04, 2021 22:59:01)
[2021-01-04 23:23] LABS: MAGNESIUM 2.8 mg/dL (1.7-2.9); TROPONIN I < 0.02 ng/mL (0-1.5)
[2021-01-04] MEDS ORDERED: LEVOPHED INJ 8 MG in D5W 250 ML IV 242 ML IV PRN (23:26)
[2021-01-04] MEDS ORDERED: D5W 250 ML IV 250 ML IV ONE (23:35)
[2021-01-04] MEDS ORDERED: LEVOPHED INJ ONE (23:35)
[2021-01-04 23:38] LABS: WHITE BLOOD COUNT 38.5 X10^3/uL (3.6-10.0)
[2021-01-04 23:39] LABS: HEMATOCRIT 22.5 % (42.0-54.0); HEMOGLOBIN 6.9 g/dL (13.5-18.0); MEAN CORPUSCULAR VOLUME 85.1 fL (80.0-100.0); RED BLOOD COUNT 2.65 X10^6/uL (4.7-6.0)
--- NOTE | 2021-01-04 23:39 | DR.SOBA ---
HPI Time Seen Time Seen by Provider: 12/29/20 08:20 Primary Care Physician Primary Care Physician: ERIC LI Complaints Chief Complaint:: Pt c/o shortness of breath, pain all over, swelling to hands and lower lip, and difficulty walking. He states the pain is too severe to walk. Pt reports his rapid breathing is due to anxiety. COVID-19 Coronavirus risk:travel/contact w/high risk person: No Has patient experienced Coronavirus symptoms: No Source History Provided: Patient Mode of Arrival Mode of Arrival: Wheelchair Timing Onset of Chief Complaint: 12/29/20 PMH PMH Past Medical History: Yes Past Medical History: GERD and Sleep Apnea Past Medical History Comment: PE Past Surgical History: Yes Family History History of Family Medical Conditions: Yes Family Medical History: Diabetes Mellitus and Hypertension Social History Does patient currently use any type of tobacco product: Yes Have you used tobacco products in the last 12 months: Yes Type of Tobacco Use: Cigarettes Does any household member use tobacco: No Alcohol Use: Occasionally Do you use any recreational Drugs:: Yes (marijuana) Lives With: Spouse Lives Where: Home Travel Risk Coronavirus risk:travel/contact w/high risk person: No Has patient experienced Coronavirus symptoms: No Infectious screening In the last 2 months have you had wt loss of >10#?: NO Have you had fever, night sweats or hemotysis?: No Have you traveled outside the country in the last 6 months?: No Isolation: Respiratory PE Vital Signs Vitals: Temperature 98.3 F Pulse Rate [Left Radial] 99 Pulse Rate 101 Respiratory Rate 29 Blood Pressure [Left Arm] 134/80 Blood Pressure 134/79 O2 Sat by Pulse Oximetry 94 ROR Labs Reviewed Result Diagrams: 01/04/21 19:13 01/04/21 04:00 Laboratory: 12/29/20 09:53 Blood Blood Culture - Final 12/29/20 09:40 Blood Blood Culture - Final WBC 17.3 X10^3/uL (3.6-10.0) H 12/29/20 08:31 RBC 5.41 X10^6/uL (4.7-6.0) 12/29/20 08:31 Hgb 14.5 g/dL (13.5-18.0) 12/29/20 08:31 Hct 44.1 % (42.0-54.0) 12/29/20 08:31 MCV 81.4 fL (80.0-100.0) 12/29/20 08:31 MCH 26.8 pg (27.0-34.0) L 12/29/20 08:31 MCHC 33.0 g/dL (33.0-35.0) 12/29/20 08:31 RDW 18.0 % (11.6-16.5) H 12/29/20 08:31 Plt Count 401 X10^3/uL (150.0-450.0) 12/29/20 08:31 MPV 7.7 fL (7.4-11.0) 12/29/20 08:31 Neut % (Auto) 67.4 % (42.0-75.0) 12/29/20 08:31 Lymph % (Auto) 8.4 % (21.0-51.0) L 12/29/20 08:31 [place] % (Auto) 4.2 % (0.0-13.0) 12/29/20 08:31 Eos % (Auto) 19.8 % (0.9-2.9) H 12/29/20 08:31 Baso % (Auto) 0.2 % (0.2-1.0) 12/29/20 08:31 Neut # (Auto) 11.7 x10^3/uL (2.2-4.8) H 12/29/20 08:31 Lymph # (Auto) 1.5 X10^3/uL (1.3-2.9) 12/29/20 08:31 [place] # (Auto) 0.7 x10^3/uL (0.3-0.8) 12/29/20 08:31 Eos # (Auto) 3.4 x10^3/uL (0.0-0.2) H 12/29/20 08:31 Baso # (Auto) 0.0 X10^3/uL (0.0-0.1) 12/29/20 08:31 Absolute Nucleated RBC 0.1 /100WBC 12/29/20 08:31 D-Dimer 3.79 ug/ml (0.0-0.57) H* 12/29/20 08:31 Sample Site Rr 12/29/20 08:30 ABG pH 7.500 (7.35-7.45) H 12/29/20 08:30 ABG pCO2 32.0 mmHg (35.0-45.0) L 12/29/20 08:30 ABG pO2 72.0 mmHg (80.0-100.0) L 12/29/20 08:30 ABG HCO3 25.0 mmol/L (22-26) 12/29/20 08:30 ABG O2 Saturation 96.0 % (90-100) 12/29/20 08:30 ABG Base Excess 2.3 mmol/L (-2.0-2.0) H 12/29/20 08:30 Bryan Test Pos 12/29/20 08:30 A-a Gradient 88.0 mmHg 12/29/20 08:30 FiO2 28.0 12/29/20 08:30 Blood Gas Comments Pt bella well cdn 12/29/20 08:30 Sodium 137 mmol/L (136-145) 12/29/20 08:31 Corrected Sodium 137 mmol/L (136-145) 12/29/20 08:31 Potassium 3.5 mmol/L (3.5-5.1) 12/29/20 08:31 Chloride 100 mmol/L (98-107) 12/29/20 08:31 Carbon Dioxide 25.7 mmol/L (21-32) 12/29/20 08:31 BUN 8 mg/dL (7-18) 12/29/20 08:31 Creatinine 1.38 mg/dL (0.70-1.30) H 12/29/20 08:31 Est GFR (MDRD) Af Amer > 60 (>60) 12/29/20 08:31 Est GFR (MDRD) Non-Af 59 (>60) 12/29/20 08:31 Glucose 113 mg/dL (65-99) H 12/29/20 08:31 Calcium 8.9 mg/dL (8.5-10.1) 12/29/20 08:31 Corrected Calcium 9.5 mg/dL (8.5-10.1) 12/29/20 08:31 Magnesium 2.0 mg/dL (1.7-2.9) 12/29/20 08:31 Total Bilirubin 0.70 mg/dL (0.2-1.0) 12/29/20 08:31 AST 21 Units/L (15-37) 12/29/20 08:31 ALT 19 Units/L (12-78) 12/29/20 08:31 Alkaline Phosphatase 127 Units/L (46-116) H 12/29/20 08:31 Creatine Kinase 579 Units/L (39-308) H 12/29/20 08:31 CK-MB (CK-2) 4.7 ng/mL (0-4.0) H* 12/29/20 08:31 CK/CKMB % Calc 0.8 % (<4) 12/29/20 08:31 Troponin I < 0.02 ng/mL (0-1.5) 12/29/20 08:31 Total Protein 8.2 g/dL (6.4-8.2) 12/29/20 08:31 Albumin 3.3 g/dL (3.4-5.0) L 12/29/20 08:31 Globulin 4.9 g/dL (2.5-4.5) H 12/29/20 08:31 Albumin/Globulin Ratio 0.7 Ratio (1.1-2.1) L 12/29/20 08:31 Opioid Opioid Risk Tool Age (Damon box if 16-45): Yes History of Preadolescent Sexual Abuse: No Total: 1 Total Score Risk Category: Low Risk Copyright: Jeremiah KOCH predicting aberrant behaviors Diagnosis Discharge Problem: CAP (community acquired pneumonia) Qualifiers: Laterality: unspecified laterality Qualified Code(s): J18.9 - Pneumonia, unspecified organism Instructions Instructions: Shortness of Breath, Adult, Zowy-ou-[id number] Fatigue Hypokalemia Home Oxygen Use, Adult Hypoxia Arterial Blood Gases Test Hyponatremia, [id number] Generalized Anxiety Disorder, Adult Social Anxiety Disorder, Adult You've Been Prescribed an Antibiotic in the Hospital for an Infection - CDC (11/2017) Oximetry Community-Acquired Pneumonia, Adult, [id number] Forms: Excuse From Work or School Precautions for COVID19 Patient Portal Social Distancing ADDITIONAL NOTES Additional Notes Additional Notes: 01/04/21--Called to ICU for cardiac arrest. Hand-written note detailing the assessment and treatment placed in chart.
[2021-01-04 23:40] LABS: BASOPHILS # (AUTO) 0.3 X10^3/uL (0.0-0.1); BASOPHILS % (AUTO) 0.7 % (0.2-1.0); EOSINOPHILS # (AUTO) 1.4 x10^3/uL (0.0-0.2); EOSINOPHILS % (AUTO) 3.4 % (0.9-2.9); LYMPHOCYTES # (AUTO) 6.5 X10^3/uL (1.3-2.9); LYMPHOCYTES % (AUTO) 15.9 % (21.0-51.0); MEAN CORPUSCULAR HEMOGLOBIN 26.2 pg (27.0-34.0); MEAN CORPUSCULAR HGB CONC 30.7 g/dL (33.0-35.0); MEAN PLATELET VOLUME 7.7 fL (7.4-11.0); MONOCYTES # (AUTO) 1.2 x10^3/uL (0.3-0.8); MONOCYTES % (AUTO) 2.9 % (0.0-13.0); NEUTROPHILS # (AUTO) 31.4 x10^3/uL (2.2-4.8); NEUTROPHILS % (AUTO) 77.1 % (42.0-75.0); PLATELET COUNT 331 X10^3/uL (150.0-450.0); RED CELL DISTRIBUTION WIDTH 17.6 % (11.6-16.5)
[2021-01-04 23:45] LABS: ABG BASE EXCESS -7.3 mmol/L (-2.0-2.0); ABG HCO3 21.1 mmol/L (22-26)
[2021-01-04 23:46] LABS: ABG ALLEN TEST POS
[2021-01-05] MEDS ORDERED: NS 1000 ML 1,000 ML ONE (00:31)
--- NOTE | 2021-01-05 00:54 | DR.UPDATE ---
H&P Update History and Physical Update: History and Physical reviewed and patient examined. Changes noted: NO Yes with the following:will place central line H&P Reviewed: Yes Patient was examined?: Yes Procedures (ALL) - Central Line Placement PCM.CLCO: written consent (emergency consent) Time out performed: Yes Patient placed pm monitor/pulse ox: Yes MD prep: mask, gown, gloves, other Centrial line prep: chlorhexidine scrub, sterile drapes applied Ultrasound used for placement: Yes (right ij id'd via u/s and cannulation visualized) Central line lumen ininserted: triple Post procedure: sutured in place, good blood return, all ports aspirated, flushed,capped, sterile dressing applied Post procedure xray: tip oc catheter in good position, no pneumothorax seen Patient tolerated procedure: Yes Complications: none
--- NOTE | 2021-01-05 01:37 | RAD ---
PROCEDURE: Chest X-ray 1 View .HISTORY: CENTRAL LINE PLACEMENT .TECHNIQUE: AP view .COMPARISON: 01/04/2021.TECHNICAL QUALITY: Satisfactory .FINDINGS:Endotracheal tube tip 7 cm above the selam. Right internal jugular central venous line tip superior cavoatrial junction.Unremarkable cardio mediastinal silhouette.Dense bilateral pneumonia is unchanged with no pleural fluid or pneumothorax.IMPRESSION:1. Good right internal jugular central venous line placement.2. Unchanged bilateral pneumonia.Electronically signed by: Jay Jay Mcguire (January 05, 2021 01:34:44)
[2021-01-05 02:19] LABS: HEMATOCRIT 26.5 % (42.0-54.0); HEMOGLOBIN 8.7 g/dL (13.5-18.0)
[2021-01-05] MEDS ORDERED: DIPRIVAN PREMIX 500 MG IV 500 MG/50 ML VIAL IV ONE (03:57)
[2021-01-05] MEDS ORDERED: DIPRIVAN PREMIX 1 GRAM IV 1,000 MG/100 ML VIAL ONE (03:58)
[2021-01-05] MEDS: DIPRIVAN PREMIX 1 GRAM IV 1,000 MG/100 ML VIAL IV PRN ×2 (04:15→14:02)
[2021-01-05 05:10] LABS: ALBUMIN 1.9 g/dL (3.4-5.0); BASOPHILS # (AUTO) 0.1 X10^3/uL (0.0-0.1); BASOPHILS % (AUTO) 0.5 % (0.2-1.0); CALCIUM 6.7 mg/dL (8.5-10.1); CARBON DIOXIDE 24.2 mmol/L (21-32); COR CA(FOR HYPOALB) 8.4 mg/dL (8.5-10.1); CREATININE 2.03 mg/dL (0.70-1.30); EOSINOPHILS # (AUTO) 0.3 x10^3/uL (0.0-0.2); HEMATOCRIT 26.5 % (42.0-54.0); HEMOGLOBIN 8.8 g/dL (13.5-18.0); LYMPHOCYTES # (AUTO) 3.8 X10^3/uL (1.3-2.9); LYMPHOCYTES % (AUTO) 14.2 % (21.0-51.0); MEAN CORPUSCULAR HEMOGLOBIN 27.8 pg (27.0-34.0); MEAN CORPUSCULAR HGB CONC 33.3 g/dL (33.0-35.0); MEAN CORPUSCULAR VOLUME 83.4 fL (80.0-100.0); MEAN PLATELET VOLUME 7.9 fL (7.4-11.0); MONOCYTES # (AUTO) 1.7 x10^3/uL (0.3-0.8); MONOCYTES % (AUTO) 6.5 % (0.0-13.0); NEUTROPHILS # (AUTO) 20.8 x10^3/uL (2.2-4.8); NEUTROPHILS % (AUTO) 77.8 % (42.0-75.0); PLATELET COUNT 274 X10^3/uL (150.0-450.0); RED BLOOD COUNT 3.18 X10^6/uL (4.7-6.0); RED CELL DISTRIBUTION WIDTH 16.9 % (11.6-16.5); TOTAL PROTEIN 4.9 g/dL (6.4-8.2); WHITE BLOOD COUNT 26.7 X10^3/uL (3.6-10.0)
--- NOTE | 2021-01-05 05:46 | RAD ---
PROCEDURE: Chest X-ray 1 View .HISTORY: Short of breath and ventilator dependence.TECHNIQUE: AP portable view done at 4:09 a.m..COMPARISON: 01/05/2021 chest x-ray done at 12:55 a.m..TECHNICAL QUALITY: Satisfactory .FINDINGS:Endotracheal tube tip 8 cm above the selam in repositioning more distally 3-4 cm may be helpful. Right internal jugular central venous line tip projected near the superior cavoatrial junction.Unremarkable cardio mediastinal silhouette.Normal central vascularity.Unchanged dense pneumonia both lung [place] with no pleural fluid or pneumothorax.IMPRESSION:1. High endotracheal tube in repositioning more distally 3-4 cm recommended.2. Unchanged dense bilateral pneumonia.Electronically signed by: Jay Jay Mcguire (January 05, 2021 05:44:16)
[2021-01-05] MEDS ORDERED: NS 1/2 1000 ML IV 1,000 ML IV ONE (05:51)
[2021-01-05] MEDS: XOPENEX 1.25 MG/3 ML NEBULE NEB SCH ×3 (06:00→12:35)
[2021-01-05 06:36] LABS: ABG ALLEN TEST POS; ABG BASE EXCESS -1.1 mmol/L (-2.0-2.0); ABG HCO3 25.3 mmol/L (22-26)
[2021-01-05] MEDS: NS 1/2 1000 ML IV 1,000 ML IV SCH (07:22)
[2021-01-05] MEDS: ROBITUSSIN DM PO SCH ×3 (07:23→13:40)
[2021-01-05] MEDS: NYSTATIN SUSP PO SCH ×3 (07:23→13:39)
[2021-01-05] MEDS ORDERED: LEVAQUIN PREMIX IV 750 MG 750 MG/150 ML BAG IV ONE (08:38)
[2021-01-05 08:52] LABS: BAND NEUTROPHILS % 5 % (0-10); PLATELET MORPHOLOGY COMMENT NORMAL (NORMAL)
[2021-01-05 08:53] LABS: HYPOCHROMASIA 3+
[2021-01-05 08:54] LABS: ANISOCYTOSIS 1+
[2021-01-05] MEDS ORDERED: DIFLUCAN 200 MG IV PREMIX* 200 MG/100 ML BAG IV SCH (09:00)
[2021-01-05] MEDS ORDERED: LR 1000 ML IV 1,000 ML IV SCH (09:00)
[2021-01-05] MEDS ORDERED: SOLU-Medrol 125 MG VIAL IVP SCH (09:00)
[2021-01-05] MEDS ORDERED: PROTONIX INJ 40 MG VIAL IVP SCH (09:00)
[2021-01-05] MEDS: LEXAPRO PO SCH (09:55)
[2021-01-05] MEDS: PREDNISONE TAB 20 MG PO SCH (09:56)
[2021-01-05] MEDS: TOPROL XL PO SCH (09:56)
[2021-01-05 10:25] LABS: BAND NEUTROPHILS % 6 % (0-10); METAMYELOCYTES % 5; MYELOCYTES % 3; PLATELET MORPHOLOGY COMMENT NORMAL (NORMAL)
[2021-01-05 10:26] LABS: ANISOCYTOSIS 1+; HYPOCHROMASIA 1+; POIKILOCYTOSIS SLIGHT
[2021-01-05] MEDS ORDERED: NS 500 ML IV 500 ML IV PRN (11:56)
[2021-01-05] MEDS: PULMICORT NEB TX 0.5 MG NEB SCH (12:35)
[2021-01-05] MEDS ORDERED: PRECEDEX 400 MCG/100 ML PREMIX 400 MCG/100 ML INFUS..BTL IV PRN (13:20)
[2021-01-05 14:05] VITALS: BP 122/58
== END 2021-01-05 15:35 | disposition home or self-care (01) | DRG 208 ==
LOC: ER 08:09 → MED/SURG 10:24 → ICU 01-05 01:15
PROVIDERS: ADMIT Obstetrics & Gynecology Obstetrics; ATTEND Obstetrics & Gynecology Obstetrics
DX: R06.02 Shortness of breath; J82.82 Acute eosinophilic pneumonia; L52 Erythema nodosum; F41.9 Anxiety disorder, unspecified; R26.2 Difficulty in walking, not elsewhere classified; M25.512 Pain in left shoulder; R60.0 Localized edema; B37.9 Candidiasis, unspecified; I46.9 Cardiac arrest, cause unspecified; I87.2 Venous insufficiency (chronic) (peripheral)